=== PATIENT | male | born 1960 | race Caucasian/White ===

== ENCOUNTER 2020-03-26 19:33 | Emergency (ER) | payer MEDICARE, OTHER ==
[~2020-03-26] VITALS: Ht 170.2 cm; Wt 79.4 kg
[~2020-03-26 19:33] MED LIST: AMOCLA875 PO; AZIT250 PO; BISO5 PO; CITA20 PO; CRUTCH2 USE; CYCL10 PO; DULO60; FLUT.05NI; HYDCHL25 PO; HYDMOR4 PO; IBUP800 PO; MELO7.5 PO; METPRE4DP PO; Micro-K10 MEQ; OXYACE5T PO; PRED10 PO; Percocet 5-3251 EACH PO; QUIN10 PO; RXHYDMOR2 PO; TRAZ50 PO; [UNRECOGNIZED DRUG - REMARK]; [UNRECOGNIZED DRUG - REMARK]; [UNRECOGNIZED DRUG - REMARK]; [UNRECOGNIZED DRUG - REMARK]; [UNRECOGNIZED DRUG - REMARK]
[2020-03-26] MEDS ORDERED: Norco 5-325 Ta1 EACH PO (23:43)
[2020-03-26] MEDS ORDERED: CYCL10 PO (23:43)
== END 2020-03-27 00:11 | disposition home or self-care (01) ==
LOC: ER 19:33
DX: M54.5 Low back pain (principal); I10 Essential (primary) hypertension; Z79.899 Other long term (current) drug therapy; Z91.030 Bee allergy status; Z88.2 Allergy status to sulfonamides; X50.1XXA Overexertion from prolonged static or awkward postures, initial encounter
CPT/HCPCS: 96361; 96374; 96375; 96376; 99282-25; A9270; J1100; J1170; J1885; J7030

== ENCOUNTER 2023-06-03 13:20 | Emergency (ER) | payer MEDICARE ==
[~2023-06-03] VITALS: Ht 172.7 cm; Wt 79.4 kg
[~2023-06-03 13:20] MED LIST changes: +Norco 5-325 Ta1 EACH PO
[2023-06-03 13:31] VITALS: BP 169/83
[2023-06-03] MEDS ORDERED: Ketorolac Tromethamine 15mg Vial IV ONE (15:10)
[2023-06-03] MEDS ORDERED: CELE200 PO (16:23)
== END 2023-06-03 16:29 | disposition home or self-care (01) ==
LOC: ER 13:20
DX: M54.50 Low back pain, unspecified (principal); M25.552 Pain in left hip; G89.29 Other chronic pain; M19.90 Unspecified osteoarthritis, unspecified site; I10 Essential (primary) hypertension; Z87.828 Personal history of other (healed) physical injury and trauma; Z79.1 Long term (current) use of non-steroidal anti-inflammatories (NSAID); Z79.899 Other long term (current) drug therapy; Z88.2 Allergy status to sulfonamides; Z91.030 Bee allergy status; X50.9XXA Other and unspecified overexertion or strenuous movements or postures, initial encounter; Y93.89 Activity, other specified
CPT/HCPCS: 96374; 99284-25; J1885

== ENCOUNTER → 2024-01-12 | Outpatient (CLI) | payer MEDICARE, OTHER ==
[~2024-01-12] MED LIST changes: +CELE200 PO
== END ==
LOC: LAB SHORT 17:43 → LAB 17:43
DX: R30.0 Dysuria (principal)
CPT/HCPCS: 87086

== ENCOUNTER → 2024-04-26 | Outpatient (CLI) | payer MEDICARE, OTHER | LOC: LAB 14:25 → LAB SHORT 14:25 | DX: R31.9 Hematuria, unspecified (principal) | CPT/HCPCS: 87086 ==